=== PATIENT | female | born 1960 | race Caucasian/White ===

== ENCOUNTER 2016-09-23 09:48 | Inpatient (IN) ==
--- NOTE | 2016-09-22 21:43 | Discharge Summary ---
Outpatient Proc Discharge Plan - Plan Additional Instructions: NonWeightbear to affected extremity. ICE and elevate. Continue in immobilization Prescriptions: Clindamycin [Cleocin] 150 mg PO Q6HR #8 capsule OxyCODONE Immed Rel [Roxicodone 5 MG] 5 - 10 mg PO Q6HR PRN #40 tablet PRN Reason: Pain Home Medications: Calcitriol 0.5 mcg PO DAILY 05/05/16 [History] Duloxetine HCl [Cymbalta] 60 mg PO BID 05/05/16 [History] Alendronate Sodium [Fosamax] 70 mg PO TH 05/06/16 [History] Diclofenac Sodium [Voltaren] 75 mg PO BID 05/06/16 [History] Levothyroxine [Synthroid] 75 mcg PO QAM 05/06/16 [History] Pregabalin [Lyrica] 75 mg PO TID 05/06/16 [History] Simvastatin [Zocor] 40 mg PO HS 05/06/16 [History] Lisinopril [Zestril] 20 mg PO DAILY 05/31/16 [History] Omeprazole [PriLOSEC] 20 mg PO DAILY 05/31/16 [History] Sennosides/Docusate Sodium [Senna-S Tablet] 1 each PO BID 05/31/16 [History] Clindamycin [Cleocin] 150 mg PO Q6HR #8 capsule 09/22/16 [Rx] OxyCODONE Immed Rel [Roxicodone 5 MG] 5 - 10 mg PO Q6HR PRN #40 tablet 09/22/16 [Rx]
[2016-09-23] MEDS ORDERED: CeFAZolin Pre 3,000 MG/100 ML 3,000 MG/100 ML BAG IVPB ONE (10:17)
[2016-09-23] MEDS ORDERED: Lidocaine 1% 20 ML MDV ID ONE (10:17)
[2016-09-23] MEDS ORDERED: Ringers Solution, Lactated 1,000 ML IVC SCH ×2 (10:30→17:52)
--- NOTE | 2016-09-23 10:36 | Anesthesia Evaluation PreOp ---
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 (migraines, lumbar HNP with stenosis) Other Medical History: Thyroid, GERD (occassional), Other (Fibromyalgia, BMI 47) Anesthesia History: No Prior Anesthetic Complications Alcohol Use: none Drug use: none Medications and Allergies Calcitriol 0.5 mcg PO DAILY 05/05/16 [History] Duloxetine HCl [Cymbalta] 60 mg PO BID 05/05/16 [History] Alendronate Sodium [Fosamax] 70 mg PO TH 05/06/16 [History] Diclofenac Sodium [Voltaren] 75 mg PO BID 05/06/16 [History] Levothyroxine [Synthroid] 75 mcg PO QAM 05/06/16 [History] Pregabalin [Lyrica] 75 mg PO TID 05/06/16 [History] Simvastatin [Zocor] 40 mg PO HS 05/06/16 [History] Lisinopril [Zestril] 20 mg PO DAILY 05/31/16 [History] Omeprazole [PriLOSEC] 20 mg PO DAILY 05/31/16 [History] Sennosides/Docusate Sodium [Senna-S Tablet] 1 each PO BID 05/31/16 [History] Clindamycin [Cleocin] 150 mg PO Q6HR #8 capsule 09/22/16 [Rx] OxyCODONE Immed Rel [Roxicodone 5 MG] 5 - 10 mg PO Q6HR PRN #40 tablet 09/22/16 [Rx] Allergies menthol [From Ice Gel] Allergy (Verified 05/31/16 08:23) Rash azithromycin Adverse Reaction (Verified 05/31/16 08:23) Vomiting - Meds/Allergy Pre-op Review Medications Reviewed: Yes Allergies Reviewed: Yes Beta Blockers on Current Med List: No (not taking atenolol anymore) Anesthesia Results - Labs Laboratory Tests 09/17/16 09/17/16 12:35 12:35 WBC 8.9 Hgb 12.0 Hct 37.6 Plt Count 243 Sodium 140 Potassium 4.1 Chloride 105 Carbon Dioxide 26 BUN 26 H Creatinine 1.03 Est GFR ( Amer) > 60 Est GFR (Non-Af Amer) 55 L BUN/Creatinine Ratio 25 - Imaging EKG: report reviewed, image reviewed (SR; voltage criteria for LVH) Anesthesia Exam Last Vital Signs Temp 98.8 F 09/23/16 10:11 Pulse 82 09/23/16 10:11 Resp 18 09/23/16 10:11 BP 113/66 09/23/16 10:11 Pulse Ox 94 L 09/23/16 10:11 Weight: 136 kg NPO (# of Hours): >> 8 hrs - HEENT Pupil (Motor): Pupils equal, EOMI Mallampati: II Teeth: Missing, Poor dentition (very few teeth remaining) Oral Opening: Greater than 3 - KNITTING MACHINE OPERATOR LOC: Oriented - Cardiac Rhythm: Regular Murmur: None - Pulmonary Breath Sounds: bilateral Clear Respiratory Effort: Symmetrical Anesthesia Assess/Plan ASA Score: 3 Modified [place] Scale for Level of Consciousness: Cooperative, oriented, and tranquil Anesthetic Plan: General Monitoring Plan: Standard Monitors Recovery Plan: PACU
[2016-09-23] MEDS ORDERED: Ondansetron 4 MG/2 ML VIAL ONE (11:49)
[2016-09-23] MEDS ORDERED: Ketorolac 30 MG/ML VIAL ONE (11:49)
[2016-09-23] MEDS ORDERED: *HR* Midazolam HCl 2 MG/2 ML VIAL ONE (11:49)
[2016-09-23] MEDS ORDERED: *HR* FentaNYL (PF) 100 MCG/2 ML VIAL ONE ×2 (11:49→13:58)
[2016-09-23] MEDS ORDERED: *HR* Propofol 200 MG/20 ML VIAL IVP ONE (11:49)
[2016-09-23] MEDS ORDERED: Lidocaine -MPF 2% 2 ML VIAL ONE (11:50)
--- NOTE | 2016-09-23 12:00 | History & Physical Report ---
Date of Encounter: 09/23/16 Time of Encounter: 11:59 24 Hour HP Update - Instructions Instructions: If the History and Physical is less than 30 days old and was completed prior to A.M. admission and or procedure and has NOT been updated on calendar day of procedure please complete this update prior to performing procedure. - Update Patient reports changes in Medical Condition: No Changes in assessment/condition: No Changes in Medication: No Preop tests/diagnostics Reviewed: Yes Surgery Remains Indicated: Yes Consent for Planned Operative Procedure(s) Verified: Yes - Pre-Operative Checklist Preoperative Checklist Indicated: No Prophylactic Antibiotic Ordered: Yes Is VTE Prophylaxis Indicated?: Yes
--- NOTE | 2016-09-23 12:02 | Discharge Summary ---
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 Priority: Primary Status: Acute Qualifiers: Encounter type: subsequent encounter Fracture morphology: oblique Fracture alignment: displaced Qualified Code(s): S82.231K - Displaced oblique fracture of shaft of right tibia, subsequent encounter for closed fracture with nonunion (2) Fibromyalgia Priority: Secondary Status: Chronic (3) Hypertension Priority: Secondary Status: Chronic Qualifiers: Hypertension type: unspecified secondary hypertension Qualified Code(s): I15.9 - Secondary hypertension, unspecified; I15 - Secondary hypertension (4) Hypothyroidism Priority: Secondary Status: Chronic Qualifiers: Hypothyroidism type: unspecified Qualified Code(s): E03.9 - Hypothyroidism , unspecified (5) Morbid obesity Priority: Secondary Status: Chronic Qualifiers: Obesity type: unspecified obesity type Qualified Code(s): E66.01 - Morbid ( severe) obesity due to excess calories - Discharge Medications Home Medications: Duloxetine HCl [Cymbalta] 60 mg PO DAILY 05/05/16 [History] Alendronate Sodium [Fosamax] 70 mg PO WILLS 05/06/16 [History] Levothyroxine [Synthroid] 75 mcg PO QAM 05/06/16 [History] Pregabalin [Lyrica] 75 mg PO TID 05/06/16 [History] Simvastatin [Zocor] 40 mg PO HS 05/06/16 [History] Clindamycin [Cleocin] 150 mg PO Q6HR #8 capsule 09/22/16 [Rx] OxyCODONE Immed Rel [Roxicodone 5 MG] 5 - 10 mg PO Q6HR PRN #40 tablet 09/22/16 [Rx] Calcitriol [Rocaltrol] 0.25 mcg PO DAILY 09/23/16 [History] Calcium Carbonate [Calcium] 600 mg PO DAILY 09/23/16 [History] Lisinopril/Hydrochlorothiazide [Zestoretic 20-12.5 mg Tablet] 1 each PO DAILY [History] [place]-3/Dha/Epa/Fish Oil [[place] 3 500 Softgel] 1 each PO DAILY 09/23/16 [History ] Tramadol HCl [Ultram] 100 mg PO QID PRN 09/23/16 [History] Allergies/Adverse Reactions: Allergies menthol [From Ice Gel] Allergy (Verified 09/23/16 11:57) Rash Primary care physician: Belen Saravia CNP - Patient Status Disposition: Home, Self-Care Condition: Fair Functional capacity at discharge: uses cane/walker Overall status at discharge: patient is progressing back to baseline - Discharge Instructions Follow Up With: Belen Saravia CNP [Primary Care Provider] - Additional Instructions: NonWeightbear to affected extremity. ICE and elevate. Continue in immobilization - Hospital Course Hospital course: Ms. Cassidy is a 56 year old female The patient had an uneventful postoperative course. They received antibiotics and physical therapy and were discharged in stable condition. There will follow -up in the office in 2 weeks. - Time Spent with Patient Total time spent providing and/or coordinating discharge services:
[2016-09-23] MEDS ORDERED: Neostigmine Methylsulfate 3 MG/3 ML SYRINGE ONE (12:05)
[2016-09-23] MEDS ORDERED: Bupivacaine/EPI 1:200k 0.5%PF 10 ML VIAL ONE (12:27)
[2016-09-23] MEDS ORDERED: MethylPREDNISolone Acet(DEPOT) 80 MG/ML VIAL ONE (12:27)
[2016-09-23] MEDS ORDERED: Dexamethasone 4 MG/ML VIAL ONE (13:24)
[2016-09-23] MEDS ORDERED: *HR* Succinylcholine 200 MG/10 ML VIAL IVP ONE (13:29)
[2016-09-23] MEDS ORDERED: *HR* Promethazine 25 MG/ML VIAL IVP PRN (13:31)
[2016-09-23] MEDS ORDERED: Albuterol 2.5 MG/3 ML NEBULIZER IH PRN (13:31)
--- NOTE | 2016-09-23 14:22 | Orthopedic Operative Note ---
Date of procedure: 09/23/16 Pre-op diagnosis: Nonunion right tibial shaft fracture Post-op diagnosis: same Procedure: Procedure: Right tibia removal of hardware, takedown of nonunion open reduction internal fixation. Estimated blood loss 1000 mL Hardware: Synthes 8 hole medial periarticular proximal 4.5 locking plate 3 4.5 cortical screws 8 5.0 locking screws, one indwelling bone stimulator. Dictation surgery: Patient brought to the operating placed on the operative table after general anesthesia was administered the right lower extremity is prepped and draped in sterile surgical fashion patient received IV antibiotics prior to skin incision. A small incision was made over the distal screw anteromedial right ankle area. Incision made through the skin and subcutaneous tissue hemostasis was obtained Bovie cautery. Screws identified and removed without incident. Wound was irrigated skin was closed with skin alize. Attention then turned to removal of the prasanth proximally and the proximal locking screw. A longitudinal incision was made through the old incision extending distally down the proximal tibia. Incision made through skin and subcutaneous tissue hemostasis was obtained Bovie cautery. Using careful blunt dissection the proximal locking screw was identified medially and removed without incident. A medial parapatellar tendon approach was performed incision made through the parapatellar tendon area. Using careful blunt dissection the prasanth was identified extraction device was attached and the prasanth was removed without incident. Utilizing fluoroscopic assistance the nonunion site was identified. Incision was taken down distally past the this area. He anteromedial tibia was exposed. The nonunion site was exposed cleared of debris. The nonunion was reduced and held in place with a bone-holding forceps. Position of the reduction was found to be acceptable. An 8 hole para-articular proximal tibial plate was approximated to the anteromedial aspect. It was secured on each side of the fracture in compression with 2 4.5 compression screws. Fixation was augmented distally with one 4.5 compression screw and 2 5.0 locking screws. Fixation proximally was augmented with 65.0 locking screws. The position of the hardware as well as fracture reduction found to be acceptable with fluoroscopic assistance in the AP and lateral planes. Wound was irrigated with pulse irrigation. This is was after the wound sat for 2 minutes with a Betadine saline solution. 5 mL of DBX bone stimulating protein was packed around the fracture site laterally. An indwelling bone stimulator was then placed in this area as well. The deep subcutaneous tissues closed with #2 PDS suture subcutaneous tissue irrigated and closed deep #1 PDS suture superficially with 0 Monocryl suture and skin was closed with skin alize. She was placed in a sterile dressing U-splint extubated transferred to recovery room stable condition. Anesthesia: CHIKIS Surgeon: Haile Hackett Carton Folder: Wendy Gray Condition: stable Disposition: PACU
[2016-09-23] MEDS: *HR* HYDROmorphone (PF) 1 MG/ML SYRINGE IVP PRN ×6 (15:20→23:53)
[2016-09-23] MEDS ORDERED: Acetaminophen IV 1,000 MG/100 ML INFUS..BTL IVPB ONE (15:50)
--- NOTE | 2016-09-23 16:31 | Anesthesia Evaluation Post Op ---
Date of Encounter: 09/23/16 Time of Encounter: 16:29 - Vital Signs Vital Signs: Vital Signs/O2 Sat, Most Current Temp Pulse Resp BP Pulse Ox 97.1 F L 88 16 124/96 98 09/23/16 15:52 09/23/16 16:22 09/23/16 16:22 09/23/16 16:22 09/23/16 16:22 - Lungs Lungs: Clear Ascult./Percussion - Airway Airway: Non-obstructed - Cardiovascular Regular Rate - Mental Status Mental Status: Asleep with brisk response to light stimulation - Pain Pain Scale: 8 (has rec'd pain med) Pain Scale used: Numeric (1 - 10) - Nausea Vomiting Nausea Vomiting: Not Present - Hydration Hydration: NPO, Has not voided - Discharge PostOp Status: Transfer Patient to floor
[2016-09-23] MEDS ORDERED: MOM Conc 10 ML UD.LIQ PO PRN (17:52)
[2016-09-23] MEDS ORDERED: *HR* OxyCODONE Immed Rel 5 MG TABLET PO PRN (17:52)
[2016-09-23] MEDS ORDERED: Acetaminophen 325 MG TABLET PO PRN (17:52)
[2016-09-23] MEDS ORDERED: Naloxone 0.4 MG/ML INJ IVP PRN (17:52)
[2016-09-23] MEDS ORDERED: Temazepam 15 MG CAPSULE PO PRN (17:52)
[2016-09-23] MEDS ORDERED: Ondansetron 4 MG/2 ML VIAL IVP PRN (17:52)
[2016-09-23] MEDS ORDERED: Sennosides 8.6 MG TABLET PO PRN (17:52)
[2016-09-23] MEDS ORDERED: *HR* Enoxaparin 30 MG/0.3 ML SYRINGE SQ SCH (18:00)
[2016-09-23] MEDS: *HR* Enoxaparin 30 MG/0.3 ML SYRINGE SQ SCH (18:21)
[2016-09-23 19:04] LABS: Hemoglobin 11.9 g/dL (11.5-15.4)
[2016-09-23] MEDS: ceFAZolin 3,000 MG in D5% in Water 100 ML IVPB SCH (21:04)
[2016-09-23] MEDS: *HR* OxyCODONE Immed Rel 5 MG TABLET PO PRN (21:06)
[2016-09-24] MEDS: ceFAZolin 3,000 MG in D5% in Water 100 ML IVPB SCH (04:28)
[2016-09-24] MEDS: *HR* OxyCODONE Immed Rel 5 MG TABLET PO PRN ×4 (04:28→19:48)
--- NOTE | 2016-09-24 06:42 | Orthopedics Progress Note ---
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 Current Visit: Yes Status: Acute Qualifiers: Encounter type: subsequent encounter Fracture morphology: oblique Fracture alignment: displaced Qualified Code(s): S82.231K - Displaced oblique fracture of shaft of right tibia, subsequent encounter for closed fracture with nonunion (2) Fibromyalgia Current Visit: No Status: Chronic (3) Hypertension Current Visit: No Status: Chronic Qualifiers: Hypertension type: unspecified secondary hypertension Qualified Code(s): I15.9 - Secondary hypertension, unspecified; I15 - Secondary hypertension (4) Hypothyroidism Current Visit: No Status: Chronic Qualifiers: Hypothyroidism type: unspecified Qualified Code(s): E03.9 - Hypothyroidism , unspecified (5) Morbid obesity Current Visit: No Status: Chronic Qualifiers: Obesity type: unspecified obesity type Qualified Code(s): E66.01 - Morbid ( severe) obesity due to excess calories Subjective Interval history: Patient was seen this morning doing well without complaints. Afebrile vital signs stable. Operative extremity: Neurovascularly intact Dressing clean dry and intact Calves nontender Assessment and plan: Continue with postoperative care hematocrit 37 discharge today Objective Vital signs: Vital Signs Temp Pulse Resp BP Pulse Ox 09/24/16 06:30 97.4 F L 107 18 125/76 95 09/24/16 04:00 98.0 F 101 18 120/77 97 09/24/16 00:34 97.8 F 104 18 115/75 97 09/23/16 23:34 97.9 F 108 16 114/75 97 09/23/16 21:00 98 F 94 16 116/74 95 09/23/16 19:39 97.6 F 91 16 91/65 94 L 09/23/16 18:44 97.5 F L 125 16 103/64 94 L 09/23/16 18:37 97.5 F L 114 14 70/49 94 L 09/23/16 18:15 97.5 F L 114 16 104/80 94 L 09/23/16 17:45 97.9 F 110 16 102/78 95 09/23/16 17:30 97.6 F 96 16 117/81 96 09/23/16 16:35 97.1 F L 85 14 130/93 97 09/23/16 16:22 88 16 124/96 98 09/23/16 16:12 87 14 125/88 99 09/23/16 16:02 86 16 137/87 96 09/23/16 15:52 97.1 F L 79 18 134/85 99 09/23/16 15:42 80 20 126/87 96 09/23/16 15:32 80 22 127/70 97 09/23/16 15:22 80 20 115/67 100 09/23/16 15:12 79 16 109/71 97 09/23/16 15:02 97.1 F L 87 14 108/67 94 L 09/23/16 10:11 98.8 F 82 18 113/66 94 L Intake and Output 09/23/16 09/23/16 09/24/16 15:59 23:59 07:59 Intake Total 100 / 100 100 / 100 Output Total 1000 / 1000 300 / 300 Balance -900 / -900 -200 / -200 Intake: IV Fluids 100 / 100 100 / 100 Ancef 3,000 MG In 100 / 100 Dextrose 5% 100 ML @ 200 mls/hr IVPB Q8H [facility]MAN Rx#: [id number] Ancef Premix 3,000 MG/100 100 / 100 ML 3,000 mg In 100 ml @ 200 mls/hr IVPB PREOP ONE Rx#:[id number] Output: Urine 300 / 300 Estimated Blood Loss 1000 / 1000 Other: Weight 136.078 kg - Labs CBC & BMP: 09/23/16 18:56 - VTE Documentation of Mechanical Device: Venous foot pump, device Consult Discharge Plan - Plan Additional Instructions: NonWeightbear to affected extremity. ICE and elevate. Continue in immobilization Referrals: Belen Saravia, COATING ENGINEER [Primary Care Provider] -
[2016-09-24] MEDS: *HR* HYDROmorphone (PF) 1 MG/ML SYRINGE IVP PRN ×4 (06:48→18:09)
[2016-09-24] MEDS: *HR* Enoxaparin 30 MG/0.3 ML SYRINGE SQ SCH ×2 (06:48→18:09)
[2016-09-24 07:12] LABS: Hematocrit 33.5 % (35.3-44.9); Hemoglobin 10.6 g/dL (11.5-15.4)
[2016-09-24 07:17] LABS: Calcium 8.6 mg/dL (8.6-10.8); Potassium 4.2 mEq/L (3.5-4.5)
[2016-09-24] MEDS: Lisinopril-HCTZ 20-12.5mg TABLET PO SCH (09:04)
[2016-09-24] MEDS: traMADol 50 MG TABLET PO PRN (23:22)
[2016-09-25] MEDS: *HR* OxyCODONE Immed Rel 5 MG TABLET PO PRN ×3 (00:20→11:46)
[2016-09-25] MEDS: *HR* HYDROmorphone (PF) 1 MG/ML SYRINGE IVP PRN (02:32)
[2016-09-25 05:55] VITALS: BP 107/73
[2016-09-25] MEDS: *HR* Enoxaparin 30 MG/0.3 ML SYRINGE SQ SCH (05:57)
[2016-09-25 06:38] LABS: Hemoglobin 9.6 g/dL (11.5-15.4)
[2016-09-25 06:49] LABS: Potassium 4.3 mEq/L (3.5-4.5)
--- NOTE | 2016-09-25 08:02 | Orthopedics Progress Note ---
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 Current Visit: Yes Status: Acute Qualifiers: Encounter type: subsequent encounter Fracture morphology: oblique Fracture alignment: displaced Qualified Code(s): S82.231K - Displaced oblique fracture of shaft of right tibia, subsequent encounter for closed fracture with nonunion (2) Fibromyalgia Current Visit: No Status: Chronic (3) Hypertension Current Visit: No Status: Chronic Qualifiers: Hypertension type: unspecified secondary hypertension Qualified Code(s): I15.9 - Secondary hypertension, unspecified; I15 - Secondary hypertension (4) Hypothyroidism Current Visit: No Status: Chronic Qualifiers: Hypothyroidism type: unspecified Qualified Code(s): E03.9 - Hypothyroidism , unspecified (5) Morbid obesity Current Visit: No Status: Chronic Qualifiers: Obesity type: unspecified obesity type Qualified Code(s): E66.01 - Morbid ( severe) obesity due to excess calories Subjective Interval history: Patient was seen this morning doing well without complaints. Afebrile vital signs stable. Operative extremity: Neurovascularly intact Dressing clean dry and intact Calves nontender Assessment and plan: Continue with postoperative care discharge today Objective Vital signs: Vital Signs Temp Pulse Resp BP Pulse Ox 09/25/16 05:54 98.7 F 114 15 107/73 93 L 09/25/16 01:45 98.9 F 114 16 100/58 92 L 09/24/16 21:05 98.5 F 107 14 94/64 96 09/24/16 15:30 98.2 F 105 18 93/55 92 L 09/24/16 12:00 115 18 133/76 93 L 09/24/16 11:05 98.2 F 115 18 133/76 93 L Intake and Output 09/24/16 09/25/16 09/25/16 23:59 07:59 15:59 Output Total 300 / 300 Balance -300 / -300 Output: Urine 300 / 300 Other: # Voids 1 1 - Labs CBC & BMP: 09/25/16 06:26 09/25/16 06:26 Labs: Abnormal lab results Hgb 9.6 g/dL (11.5-15.4) L 09/25/16 06:26 Hct 30.0 % (35.3-44.9) L 09/25/16 06:26 BUN 32 mg/dL (7-20) H D 09/25/16 06:26 Creatinine 1.27 mg/dL (0.57-1.11) H 09/25/16 06:26 Est GFR ( Amer) 52 (> 60) L 09/25/16 06:26 Est GFR (Non-Af Amer) 43 (> 60) L 09/25/16 06:26 Glucose 137 mg/dL (70-99) H 09/25/16 06:26 - VTE Documentation of Mechanical Device: Venous foot pump, device Consult Discharge Plan - Plan Additional Instructions: NonWeightbear to affected extremity. ICE and elevate. Continue in immobilization Referrals: Haile Hackett MD [Partnered Physician] - 10/22/16 7:20 am Wendy Gray, PAC [Physician Shuttle Threader] - 10/03/16 8:45 am Belen Saravia, RESEARCH PROFESSIONAL [Primary Care Provider] -
[2016-09-25] MEDS: Lisinopril-HCTZ 20-12.5mg TABLET PO SCH (08:31)
[2016-09-25] MEDS: traMADol 50 MG TABLET PO PRN (08:32)
[2016-09-25] MEDS ORDERED: 0.9 % Sodium Chloride 500 ML IVC ONE (11:14)
[2016-09-29] MEDS ORDERED: (Alendronate Sodium [Fosamax] 70 MG) PO SCH (12:03)
== END 2016-09-25 13:38 | disposition home or self-care (01) | DRG 493 ==
LOC: SAMDAY 09:48 → 3NENU 17:28
PROVIDERS: ADMIT Orthopaedic Surgery; ATTEND Orthopaedic Surgery

== ENCOUNTER 2017-05-28 06:05 | Inpatient (IN) ==
--- NOTE | 2017-05-27 17:15 | Discharge Summary ---
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 Priority: Primary Status: Chronic (2) Osteomalacia Priority: Secondary Status: Chronic (3) GERD (gastroesophageal reflux disease) Priority: Secondary Status: Chronic Qualifiers: Esophagitis presence: esophagitis presence not specified Qualified Code(s) : K21.9 - Gastro-esophageal reflux disease without esophagitis (4) Fibromyalgia Priority: Secondary Status: Chronic (5) Hypothyroidism Priority: Secondary Status: Chronic Qualifiers: Hypothyroidism type: unspecified (6) Hypertension Priority: Secondary Status: Chronic Qualifiers: Hypertension type: unspecified Qualified Code(s): I10 - Essential (primary ) hypertension (7) Morbid obesity Priority: Secondary Status: Chronic (8) Renal failure, chronic Priority: Secondary Status: Chronic Qualifiers: Chronic kidney disease stage: stage 3 (moderate) Qualified Code(s): N18.3 - Chronic kidney disease, stage 3 (moderate) (9) Chronic pain Priority: Secondary Status: Chronic Comments: Patient takes Tramadol on a regular basis from pain provider. She is to hold Tramadol and take Oxycodone for her post-operative pain in the immediate post- operative period. Qualifiers: Chronic pain type: other chronic pain Qualified Code(s): G89.29 - Other chronic pain - Discharge Medications Home Medications: Duloxetine HCl [Cymbalta] 60 mg PO DAILY 05/05/16 [History] Alendronate Sodium [Fosamax] 70 mg PO WILLS 05/06/16 [History] Levothyroxine [Synthroid] 75 mcg PO QAM 05/06/16 [History] Pregabalin [Lyrica] 75 mg PO TID 05/06/16 [History] Simvastatin [Zocor] 40 mg PO HS 05/06/16 [History] Calcitriol [Rocaltrol] 0.25 mcg PO DAILY 09/23/16 [History] Calcium Carbonate [Calcium] 600 mg PO DAILY 09/23/16 [History] [place]-3/Dha/Epa/Fish Oil [[place] 3 500 Softgel] 1 each PO DAILY 09/23/16 [History ] Aspirin Enteric Coated [Aspirin EC] 325 mg PO DAILY 21 Days #21 tablet.dr [Rx] OxyCODONE Immed Rel [Roxicodone 5 MG] 5 mg PO Q6HR PRN #28 tablet 05/27/17 [Rx] Cholecalciferol (Vitamin D3) [Vitamin D3] 2,000 unit PO BID 05/28/17 [History] Ferrous Sulfate [Iron] 325 mg PO DAILY 05/28/17 [History] Lisinopril/Hydrochlorothiazide [Zestoretic 10-12.5 mg Tablet] 1 tab PO DAILY [History] Omeprazole [PriLOSEC] 20 mg PO DAILY 05/28/17 [History] Allergies/Adverse Reactions: 3 Allergy/AdvReac Type Severity Reaction Status Date / Time menthol [From Ice Gel] Allergy Rash Verified 05/28/17 06:49 Primary care physician: Belen Saravia CNP - Patient Status Disposition: Transfer Inpatient Rehab Fac Condition: Good - Discharge Instructions Follow Up With: Trey Cunningham MD [Partnered Physician] - 06/17/17 10:00 am Belen Saravia CNP [Primary Care Provider] - 06/10/17 10:15 am - Hospital Course Hospital course: Ms. Cassidy is a 56 year old female - Time Spent with Patient Total time spent providing and/or coordinating discharge services: - VTE Documentation of Mechanical Device: Venous foot pump, device <Haile Hackett - Last Filed: 05/30/17 07:47> Date of Encounter: 05/30/17 Time of Encounter: 07:46 - Discharge Diagnosis (1) Fibromyalgia Priority: Secondary Status: Chronic (2) Hypothyroidism Priority: Secondary Status: Chronic Qualifiers: Hypothyroidism type: unspecified Qualified Code(s): E03.9 - Hypothyroidism , unspecified (3) Hypertension Priority: Secondary Status: Chronic Qualifiers: Hypertension type: unspecified Qualified Code(s): I10 - Essential (primary ) hypertension (4) Morbid obesity Priority: Secondary Status: Chronic Comments: BMI 48.9 (5) 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 Priority: Primary Status: Chronic Qualifiers: Fracture morphology: oblique Fracture alignment: displaced (6) Renal failure, chronic Priority: Secondary Status: Inactive Qualifiers: Chronic kidney disease stage: stage 3 (moderate) Qualified Code(s): N18.3 - Chronic kidney disease, stage 3 (moderate) (7) Osteomalacia Priority: Secondary Status: Chronic (8) GERD (gastroesophageal reflux disease) Priority: Secondary Status: Chronic Qualifiers: Esophagitis presence: esophagitis presence not specified Qualified Code(s) : K21.9 - Gastro-esophageal reflux disease without esophagitis (9) Chronic pain Priority: Secondary Status: Chronic Qualifiers: Chronic pain type: other chronic pain Qualified Code(s): G89.29 - Other chronic pain Primary care physician: Belen Saravia CNP - Patient Status Functional capacity at discharge: uses cane/walker Overall status at discharge: patient is progressing back to baseline - Hospital Course Hospital course: Ms. Cassidy is a 56 year old female Has post takedown of nonunion removal of hardware and revision of nonunion fixation right tibia. The patient had an uneventful postoperative course. They received antibiotics and physical therapy and were discharged in stable condition. There will follow -up in the office in 2 weeks. Patient requires discharged to a longterm due to inability to take care of herself. Patient will be discharged tomorrow - Time Spent with Patient Total time spent providing and/or coordinating discharge services:
[2017-05-28] MEDS ORDERED: Lidocaine -MPF 1% 2 ML VIAL ID ONE (06:32)
[2017-05-28] MEDS ORDERED: CeFAZolin Pre 3,000 MG/100 ML 3,000 MG/100 ML BAG IVPB ONE (06:32)
[2017-05-28] MEDS: 0.9 % Sodium Chloride 500 ML IVC SCH ×2 (06:37→10:09)
[2017-05-28] MEDS ORDERED: *HR* Succinylcholine 200 MG/10 ML VIAL IVP ONE (06:52)
[2017-05-28] MEDS ORDERED: *HR* FentaNYL (PF) 100 MCG/2 ML VIAL ONE (06:52)
[2017-05-28] MEDS ORDERED: Dexamethasone 4 MG/ML VIAL ONE (06:52)
[2017-05-28] MEDS ORDERED: *HR* Rocuronium Bromide 50 MG/5 ML VIAL ONE (06:52)
[2017-05-28] MEDS ORDERED: Lidocaine -MPF 4% 5 ML AMPUL ONE (06:52)
[2017-05-28] MEDS ORDERED: *HR* Midazolam HCl 2 MG/2 ML VIAL ONE (06:52)
[2017-05-28] MEDS ORDERED: Lidocaine -MPF 2% 2 ML VIAL ONE (06:52)
[2017-05-28] MEDS ORDERED: *HR* Propofol 200 MG/20 ML VIAL IVP ONE (06:52)
[2017-05-28] MEDS ORDERED: Ondansetron 4 MG/2 ML VIAL ONE (06:52)
--- NOTE | 2017-05-28 07:03 | History & Physical Report ---
Date of Encounter: 05/28/17 Time of Encounter: 07:02 24 Hour HP Update - Instructions Instructions: If the History and Physical is less than 30 days old and was completed prior to A.M. admission and or procedure and has NOT been updated on calendar day of procedure please complete this update prior to performing procedure. - Update Patient reports changes in Medical Condition: No Changes in examination, assessment, or condition: No Changes in Medication: No Preop tests/diagnostics Reviewed: Yes Surgery Remains Indicated: Yes Consent for Planned Operative Procedure(s) Verified: Yes - Pre-Operative Checklist Preoperative Checklist Indicated: No Prophylactic Antibiotic Ordered: Yes Is VTE Prophylaxis Indicated?: Yes
--- NOTE | 2017-05-28 07:35 | Anesthesia Evaluation PreOp ---
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: Denies Any Significant HX Other Medical History: Renal (stage 3 CKD), Thyroid, GERD, Other (obesity BMI= 48.9, fibromyalgia , migraine ESPINOZA's) Anesthesia History: No Prior Anesthetic Complications, Past Anesthesia Alcohol Use: none Drug use: none Medications and Allergies Duloxetine HCl [Cymbalta] 60 mg PO DAILY 05/05/16 [History] Alendronate Sodium [Fosamax] 70 mg PO WILLS 05/06/16 [History] Levothyroxine [Synthroid] 75 mcg PO QAM 05/06/16 [History] Pregabalin [Lyrica] 75 mg PO TID 05/06/16 [History] Simvastatin [Zocor] 40 mg PO HS 05/06/16 [History] Calcitriol [Rocaltrol] 0.25 mcg PO DAILY 09/23/16 [History] Calcium Carbonate [Calcium] 600 mg PO DAILY 09/23/16 [History] [place]-3/Dha/Epa/Fish Oil [[place] 3 500 Softgel] 1 each PO DAILY 09/23/16 [History ] Tramadol HCl [Ultram] 100 mg PO QID PRN 09/23/16 [History] Aspirin Enteric Coated [Aspirin EC] 325 mg PO DAILY 21 Days #21 tablet. [Rx] OxyCODONE Immed Rel [Roxicodone 5 MG] 5 mg PO Q6HR PRN #28 tablet 05/27/17 [Rx] Cholecalciferol (Vitamin D3) [Vitamin D] 1,000 unit PO DAILY 05/28/17 [History] Ferrous Sulfate [Iron] 325 mg PO DAILY 05/28/17 [History] Lisinopril/Hydrochlorothiazide [Zestoretic 10-12.5 mg Tablet] 1 tab PO DAILY [History] Omeprazole [PriLOSEC] 20 mg PO DAILY 05/28/17 [History] 3 Allergy/AdvReac Type Severity Reaction Status Date / Time menthol [From Ice Gel] Allergy Rash Verified 05/28/17 06:49 - Meds/Allergy Pre-op Review Medications Reviewed: Yes Allergies Reviewed: Yes Beta Blockers on Current Med List: No Anesthesia Results - Labs Laboratory Tests 05/22/17 05/22/17 12:54 12:54 WBC 10.7 Hgb 13.6 Hct 41.5 Plt Count 253 Sodium 140 Potassium 4.4 BUN 28 H Creatinine 1.23 H - Imaging EKG: report reviewed (05/19/2017 SINUS RHYTHM VOLTAGE CRITERIA FOR LVH 2015 SR, voltage criteria for LVH) Anesthesia Exam O2 Sat Height 1.7 m Height 1.7 m Height 1.7 m Weight 141.521 kg Weight 141.521 kg Weight 141.521 kg O2 Sat by Pulse Oximetry 95 O2 Sat by Pulse Oximetry 95 Vital Signs Temp Pulse Resp BP Pulse Ox 98.9 F 78 18 133/71 95 05/28/17 06:24 05/28/17 06:24 05/28/17 06:24 05/28/17 06:24 05/28/17 06:24 Height: 5'7'' Weight: 312 lbs NPO (# of Hours): 8 Pain Scale: 0 (at rest) Pain Scale Used: Numeric (1 - 10) - HEENT Pupil (Motor): EOMI Mallampati: II Teeth: Normal, Missing Denture Type: Upper: Complete, Lower: Partial Oral Opening: Greater than 3 - [employer]ENT LOC: Oriented [employer]ENT Motor: Normal RUE, Normal LUE, Normal LLE, Normal Face, Deficit RLE [employer]ENT Sensory: Normal: RUE, LUE, LLE, Face, Deficit: RLE - Cardiac Rhythm: Regular Murmur: Systolic - Pulmonary Breath Sounds: bilateral Clear Respiratory Effort: Symmetrical Anesthesia Assess/Plan ASA Score: 3 Modified [place] Scale for Level of Consciousness: Cooperative, oriented, and tranquil Anesthetic Plan: General Monitoring Plan: Standard Monitors Recovery Plan: PACU
[2017-05-28] MEDS ORDERED: Ethanol\\Acetic Acid\\Na Ace\\Ben 1,000 ML IRRIG.SOLN IR ONE (07:42)
[2017-05-28] MEDS ORDERED: Ketamine *HR* 500 MG/10 ML MDV ONE (08:26)
[2017-05-28] MEDS ORDERED: Acetaminophen IV 1,000 MG/100 ML INFUS..BTL ONE (08:27)
[2017-05-28] MEDS ORDERED: Naloxone 0.4 MG/ML INJ IVP PRN ×2 (08:36→11:11)
[2017-05-28] MEDS ORDERED: Ondansetron 4 MG/2 ML VIAL IVP PRN ×2 (08:36→11:11)
[2017-05-28] MEDS ORDERED: *HR* Meperidine 25 MG/ML SYRINGE IVP PRN (08:36)
[2017-05-28] MEDS ORDERED: *HR* Labetalol 20 MG/4 ML SYRINGE IVP PRN (08:36)
--- NOTE | 2017-05-28 09:18 | Orthopedic Operative Note ---
Date of procedure: 05/28/17 Pre-op diagnosis: Right tibia shaft nonunion hardware failure Post-op diagnosis: same (Osteomalacia) Procedure: Procedure: Right tibia removal of hardware takedown of nonunion open reduction internal fixation revision Estimated blood loss: 500 mL Hardware Synthes metal 4.5 LCDCP broad locking plates 2 1 8 hole and one 9 hole, 9 4.5 compression screws, 8 5.0 locking screws Findings: Nonunion with mobile fracture site. Fracture of previous plate. Dictation of surgery. Patient brought to the operating placed on the operating room table. After general anesthesia was administered the right lower extremity was prepped and draped in sterile surgical fashion. Patient received IV antibiotics prior to skin incision. A longitudinal incision was made through the old incision through skin and subcutaneous tissue. Hemostasis was obtained with the Bovie cautery. Using careful blunt dissection fascia was identified and incised. Subperiosteal dissection was taken both medial and lateral along the anterior aspect of the tibia. Nonunion site was exposed. Cultures were obtained. Fractured plate was removed as well as multiple screws patient one broken screw portion of this remained intra-medullary to avoid damage to the bone to try and get it out. Osteotomy was performed with oscillating saw to freshen up the end and help with the reduction. A 4.5 9 hole plate was approximately anterolateral aspect of the tibia in the leg into a more neutral from a varus position. It was secured with 5 5.0 locking screws and 4, 4.5 compression screws. Position of the hardware as well as fracture reduction was found to be acceptable with fluoroscopic assistance. An 8 hole plate was approximated to the anteromedial aspect it was fixed with a combination of locking and compression screws. Wound was irrigated with a antibacterial solution, then with normal saline solution. The fracture site was packed with bone from the osteotomy, as well as DBX bone stability protein. The deep tissue was closed with #2 PDS suture subcutaneous with #1 PDS suture superficially with Monocryl suture skin was closed with skin alize. The PA closed the superficial tissues. Patient was placed in a sterile dressing a postoperative splint extubated and transferred to recovery stable condition. Anesthesia: CHIKIS Surgeon: Haile Hackett Supervisor [employer]: Milagro Goldsmith Condition: stable Disposition: PACU
[2017-05-28] MEDS ORDERED: *HR* HYDROmorphone 2 MG/ML SYRINGE ONE (09:30)
[2017-05-28] MEDS: *HR* HYDROmorphone (PF) 1 MG/ML SYRINGE IVP PRN ×9 (09:58→23:16)
[2017-05-28] MEDS ORDERED: Ringers Solution, Lactated 1,000 ML ONE ×2 (10:03→15:32)
[2017-05-28] MEDS ORDERED: 0.9 % Sodium Chloride 500 ML ONE (10:06)
[2017-05-28 10:49] LABS: Hematocrit 37.4 % (35.3-44.9); Hemoglobin 12.1 g/dL (11.5-15.4)
--- NOTE | 2017-05-28 11:04 | Anesthesia Evaluation Post Op ---
Date of Encounter: 05/28/17 Time of Encounter: 11:03 - Vital Signs Vital Signs: Vital Signs/O2 Sat, Most Current Temp Pulse Resp BP Pulse Ox 97.5 F L 86 12 139/73 95 05/28/17 10:56 05/28/17 10:56 05/28/17 10:56 05/28/17 10:56 05/28/17 10:56 - Lungs Lungs: Clear Ascult./Percussion - Airway Airway: Non-obstructed - Cardiovascular Regular Rate - Mental Status Mental Status: Alert & Oriented, Answers Appropriately - Pain Pain Scale: 5 Pain Scale used: Numeric (1 - 10) - Nausea Vomiting Nausea Vomiting: Not Present - Hydration Hydration: Ice chips, Has not voided - Discharge PostOp Status: Transfer Patient to floor
[2017-05-28] MEDS ORDERED: *HR* OxyCODONE Immed Rel 5 MG TABLET PO PRN (11:11)
[2017-05-28] MEDS ORDERED: *HR* HYDROmorphone (PF) 1 MG/ML SYRINGE IVP PRN (11:11)
[2017-05-28] MEDS ORDERED: Sennosides 8.6 MG TABLET PO PRN (11:11)
[2017-05-28] MEDS ORDERED: Cholecalciferol (D-3) 1,000 UNIT TABLET PO SCH (11:11)
[2017-05-28] MEDS: Pregabalin 75 MG CAPSULE PO SCH ×3 (11:33→20:08)
[2017-05-28] MEDS: ceFAZolin 3,000 MG in D5% in Water 100 ML IVPB SCH ×2 (12:30→20:08)
[2017-05-28] MEDS: *HR* OxyCODONE Immed Rel 5 MG TABLET PO PRN ×2 (14:50→20:08)
[2017-05-28] MEDS: Ringers Solution, Lactated 1,000 ML IVC SCH (16:54)
[2017-05-28] MEDS: FISH OIL PO SCH (17:54)
[2017-05-28] MEDS: EPA PO SCH (17:54)
[2017-05-28] MEDS: OMEGA PO SCH (17:54)
[2017-05-28] MEDS: DHA PO SCH (17:54)
[2017-05-29] MEDS: *HR* OxyCODONE Immed Rel 5 MG TABLET PO PRN ×4 (01:06→16:37)
[2017-05-29] MEDS: *HR* HYDROmorphone (PF) 1 MG/ML SYRINGE IVP PRN ×5 (03:19→23:50)
[2017-05-29 05:05] LABS: Hematocrit 32.9 % (35.3-44.9); Hemoglobin 10.8 g/dL (11.5-15.4)
[2017-05-29 05:16] LABS: Calcium 8.3 mg/dL (8.6-10.8); Potassium 3.9 mEq/L (3.5-4.5)
[2017-05-29] MEDS ORDERED: Aspirin Enteric Coated 325 MG Tablet PO SCH (07:03)
--- NOTE | 2017-05-29 08:13 | Orthopedics Progress Note ---
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 Current Visit: No Status: Chronic Qualifiers: Fracture morphology: oblique Fracture alignment: displaced Qualified Code (s): S82.231K - Displaced oblique fracture of shaft of right tibia, subsequent encounter for closed fracture with nonunion (6) Renal failure, chronic Current Visit: No Status: Chronic Qualifiers: Chronic kidney disease stage: stage 3 (moderate) Qualified Code(s): N18.3 - Chronic kidney disease, stage 3 (moderate) (7) Osteomalacia Current Visit: No Status: Chronic (8) GERD (gastroesophageal reflux disease) Current Visit: No Status: Chronic Qualifiers: Esophagitis presence: esophagitis presence not specified Qualified Code(s) : K21.9 - Gastro-esophageal reflux disease without esophagitis (9) Chronic pain Current Visit: No Status: Chronic Qualifiers: Chronic pain type: other chronic pain Qualified Code(s): G89.29 - Other chronic pain Subjective Interval history: Patient was seen this morning doing well without complaints. Afebrile vital signs stable. Operative extremity: Neurovascularly intact Splint intact and dry Assessment and plan: Continue with postoperative care hematocrit 32 Objective Vital signs: Vital Signs Temp Pulse Resp BP Pulse Ox 05/29/17 06:45 98.2 F 87 16 130/82 96 05/29/17 03:26 98.3 F 92 18 105/71 94 05/29/17 00:01 98.4 F 90 18 111/68 94 05/28/17 19:59 98.8 F 92 16 115/77 94 05/28/17 14:41 98.6 F 86 16 126/77 93 05/28/17 14:15 97.9 F 102 15 121/76 91 05/28/17 13:46 98.3 F 99 18 156/85 93 05/28/17 12:32 98.1 F 97 16 128/77 90 05/28/17 11:48 98.6 F 89 15 149/79 93 05/28/17 11:27 93 05/28/17 11:15 98.1 F 92 18 117/75 93 05/28/17 10:56 97.5 F L 86 12 139/73 95 05/28/17 10:46 97.4 F L 85 12 145/90 95 05/28/17 10:36 82 12 148/83 95 05/28/17 10:26 80 12 147/84 97 05/28/17 10:16 97.6 F 75 14 143/87 95 05/28/17 10:06 78 18 136/85 96 05/28/17 09:56 85 18 133/74 97 05/28/17 09:46 97.1 F L 83 16 148/89 99 Intake and Output 05/28/17 05/29/17 05/29/17 23:59 07:59 15:59 Intake Total 240 / 240 Output Total 300 / 300 500 / 500 Balance 240 / 240 -300 / -300 -500 / -500 Intake: Oral 240 / 240 Output: Urine 300 / 300 500 / 500 Other: Meal Dinner Percent of Meal Consumed 100% Weight 145.7 kg Patient Weight 05/29/17 23:59 Weight 145.7 kg - Labs CBC & BMP: 05/29/17 04:12 05/29/17 04:12 Labs: Abnormal lab results Hgb 10.8 g/dL (11.5-15.4) L 05/29/17 04:12 Hct 32.9 % (35.3-44.9) L 05/29/17 04:12 Creatinine 1.19 mg/dL (0.57-1.11) H 05/29/17 04:12 Est GFR ( Amer) 56 (> 60) L 05/29/17 04:12 Est GFR (Non-Af Amer) 47 (> 60) L 05/29/17 04:12 Glucose 146 mg/dL (70-99) H 05/29/17 04:12 Calcium 8.3 mg/dL (8.6-10.8) L 05/29/17 04:12 - VTE Documentation of Mechanical Device: Venous foot pump, device Consult Discharge Plan - Plan Referrals: Belen Saravia, FOOD BAGGING MACHINE OPERATOR [Primary Care Provider] -
[2017-05-29] MEDS: Cholecalciferol (D-3) 1,000 UNIT TABLET PO SCH (08:14)
[2017-05-29] MEDS: Pregabalin 75 MG CAPSULE PO SCH ×3 (08:14→19:42)
[2017-05-29] MEDS: Aspirin Enteric Coated 325 MG Tablet PO SCH ×3 (08:14→19:43)
[2017-05-29] MEDS: EPA PO SCH (08:16)
[2017-05-29] MEDS: FISH OIL PO SCH (08:16)
[2017-05-29] MEDS: DHA PO SCH (08:16)
[2017-05-29] MEDS: OMEGA PO SCH (08:16)
[2017-05-29] MEDS: Ringers Solution, Lactated 1,000 ML IVC SCH ×2 (16:24→17:31)
--- NOTE | 2017-05-29 16:44 | Event Note ---
Date of Encounter: 05/29/17 Time of Encounter: 13:00 Right tibia removal of hardware takedown of nonunion open reduction internal fixation revision 05/28/17 POD#.1 Patient seen at bedside. Pain control: adequate Participating in PT. All questions and concerns addressed. Educated on use of incentive spirometer, ambulation, and hydration. Patient educated on post-operative restrictions and care. Addressed: Will plan to have bring in CAM walker boot from home; plan to transition to this 05/30. D/C plan: [facility] Friday
--- NOTE | 2017-05-29 16:47 | Physician Discharge Referral ---
<Wendy Gray L - Last Filed: 05/29/17 16:44> [facility] Referral Info Transfer To: F Provider in Charge: Provider in Charge after Transfer: PCP Institutional Level of Care: Skilled - Diagnosis (1) S/P ORIF (open reduction internal fixation) fracture Priority: Primary Status: Acute (2) Fracture tibia/fibula Priority: Secondary Status: Chronic (3) Hypertension Priority: Secondary Status: Chronic (4) Morbid obesity Priority: Secondary Status: Chronic Expected Duration of Placement: < 30 days Prognosis: Good Aware of Diagnosis: Patient Aware of Prognosis: Patient - Transfer Medications Home Medications: Duloxetine HCl [Cymbalta] 60 mg PO DAILY 05/05/16 [History] Alendronate Sodium [Fosamax] 70 mg PO WILLS 05/06/16 [History] Levothyroxine [Synthroid] 75 mcg PO QAM 05/06/16 [History] Pregabalin [Lyrica] 75 mg PO TID 05/06/16 [History] Simvastatin [Zocor] 40 mg PO HS 05/06/16 [History] Calcitriol [Rocaltrol] 0.25 mcg PO DAILY 09/23/16 [History] Calcium Carbonate [Calcium] 600 mg PO DAILY 09/23/16 [History] [place]-3/Dha/Epa/Fish Oil [[place] 3 500 Softgel] 1 each PO DAILY 09/23/16 [History ] Aspirin Enteric Coated [Aspirin EC] 325 mg PO DAILY 21 Days #21 tablet. [Rx] OxyCODONE Immed Rel [Roxicodone 5 MG] 5 mg PO Q6HR PRN #28 tablet 05/27/17 [Rx] Cholecalciferol (Vitamin D3) [Vitamin D3] 2,000 unit PO BID 05/28/17 [History] Ferrous Sulfate [Iron] 325 mg PO DAILY 05/28/17 [History] Lisinopril/Hydrochlorothiazide [Zestoretic 10-12.5 mg Tablet] 1 tab PO DAILY [History] Omeprazole [PriLOSEC] 20 mg PO DAILY 05/28/17 [History] Allergies/Adverse Reactions: 3 Allergy/AdvReac Type Severity Reaction Status Date / Time menthol [From Ice Gel] Allergy Rash Verified 05/28/17 06:49 - Respiratory Orders None Smoking Cessation: Smoking cessation has been advised. For more information, call the [place] Tobacco Quit Line at 4-261-OGZW-NOW. - Ancillary Orders May use pressure relief devices daily prn, May go on SHIRLEY w/family/respon democrat w /meds at nurse discretion PRN - Mobility Orders Chair, Bedrest - Rehabiliation Orders Rehab Potential: Good Rehab Orders: Evaluation for Physical Therapy, Evaluation for Occupational Therapy Other: NWB to LLE x 6 weeks. In CAM walker boot x 6 weeks. - Treatments Skin tear care topically daily PRN per policy List/Other: Opsite dressing, leave intact until first post-operative visit. If dressing becomes >50% saturated, contact office, remove dressing and place appropriate dressing in its place. Do not allow for dressing to get wet. [place] in place, plan to remove at post-operative day #14-16. Total Joint Precautions x 6 weeks Apply cold therapy wrap 3-6x/day for 20 minutes at a time. Encourage ambulation throughout the day Use Incentive spirometer 10x/hour. Elevate affected extremity above heart as tolerated. - Diet Orders Regular CERTIFICATION: I certify that the transfer of the above named patient to an Extended Care Facility is necessary for the continuing treatment of the diagnosis listed. The above information is true and accurate reflection of patient's current condition. Confidential - Redisclosure prohibited without a patient's written consent. 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 For more information, call the [place] Tobacco Quit Line at 4-956-LMCU-NOW. CERTIFICATION: I certify that the transfer of the above named patient to an Extended Care Facility is necessary for the continuing treatment of the diagnosis listed. The above information is true and accurate reflection of patient's current condition. Confidential - Redisclosure prohibited without a patient's written consent. <Milagro Goldsmith - Last Filed: 05/30/17 19:22> - Diagnosis (1) Closed displaced oblique fracture of shaft of right tibia with nonunion Status: Chronic (2) Osteomalacia Status: Chronic (3) GERD (gastroesophageal reflux disease) Status: Chronic (4) Fibromyalgia Status: Chronic (5) Hypothyroidism Status: Chronic (6) Hypertension Status: Chronic (7) Morbid obesity Status: Chronic (8) Chronic pain Status: Chronic - Respiratory Orders Smoking Cessation: Smoking cessation has been advised. For more information, call the [place] Tobacco Quit Line at 9-071-QYAZ-NOW. - Treatments List/Other: No cold therapy for patient to wound area CERTIFICATION: I certify that the transfer of the above named patient to an Extended Care Facility is necessary for the continuing treatment of the diagnosis listed. The above information is true and accurate reflection of patient's current condition. Confidential - Redisclosure prohibited without a patient's written consent.
[2017-05-30] MEDS: *HR* OxyCODONE Immed Rel 5 MG TABLET PO PRN ×4 (02:48→21:02)
[2017-05-30 04:05] LABS: Calcium 8.2 mg/dL (8.6-10.8); Hematocrit 32.6 % (35.3-44.9); Hemoglobin 10.4 g/dL (11.5-15.4); Potassium 3.7 mEq/L (3.5-4.5)
[2017-05-30] MEDS: *HR* HYDROmorphone (PF) 1 MG/ML SYRINGE IVP PRN (04:06)
[2017-05-30] MEDS: DHA PO SCH (08:19)
[2017-05-30] MEDS: Cholecalciferol (D-3) 1,000 UNIT TABLET PO SCH (08:19)
[2017-05-30] MEDS: FISH OIL PO SCH (08:19)
[2017-05-30] MEDS: OMEGA PO SCH (08:19)
[2017-05-30] MEDS: Aspirin Enteric Coated 325 MG Tablet PO SCH ×2 (08:19→21:02)
[2017-05-30] MEDS: EPA PO SCH (08:19)
[2017-05-30] MEDS: Pregabalin 75 MG CAPSULE PO SCH ×3 (08:19→21:02)
[2017-05-30] MEDS: Ringers Solution, Lactated 1,000 ML IVC SCH (08:20)
[2017-05-31] MEDS: *HR* OxyCODONE Immed Rel 5 MG TABLET PO PRN ×3 (01:34→10:01)
[2017-05-31 06:48] VITALS: BP 106/70
--- NOTE | 2017-05-31 07:26 | Orthopedics Progress Note ---
Date of Encounter: 05/31/17 Time of Encounter: 07:25 - Assessment and Plan (1) Fibromyalgia Current Visit: No Status: Chronic (2) Hypothyroidism Current Visit: No Status: Chronic Qualifiers: Hypothyroidism type: unspecified Qualified Code(s): E03.9 - Hypothyroidism , unspecified (3) Hypertension Current Visit: No Status: Chronic Qualifiers: Hypertension type: unspecified Qualified Code(s): I10 - Essential (primary ) hypertension (4) Morbid obesity Current Visit: No Status: Chronic (5) Renal failure, chronic Current Visit: No Status: Inactive Qualifiers: Chronic kidney disease stage: stage 3 (moderate) Qualified Code(s): N18.3 - Chronic kidney disease, stage 3 (moderate) (6) Osteomalacia Current Visit: No Status: Chronic (7) GERD (gastroesophageal reflux disease) Current Visit: No Status: Chronic Qualifiers: Esophagitis presence: esophagitis presence not specified Qualified Code(s) : K21.9 - Gastro-esophageal reflux disease without esophagitis (8) Chronic pain Current Visit: No Status: Chronic Qualifiers: Chronic pain type: other chronic pain Qualified Code(s): G89.29 - Other chronic pain Subjective Interval history: Patient was seen this morning doing well without complaints. Afebrile vital signs stable. Operative extremity: Neurovascularly intact Splint intact and dry Assessment and plan: Discharged today Objective Vital signs: Vital Signs Temp Pulse Resp BP Pulse Ox 05/31/17 06:47 98.2 F 93 18 106/70 91 05/30/17 22:59 98.7 F 82 15 113/71 98 05/30/17 20:09 97.8 F 71 18 113/72 94 05/30/17 19:09 98.1 F 97 15 129/79 98 05/30/17 15:56 98.4 F 101 14 102/63 92 05/30/17 11:30 97.6 F 83 20 146/86 92 05/30/17 11:28 97.9 F 96 14 111/61 95 Intake and Output 05/30/17 05/30/17 05/31/17 15:59 23:59 07:59 Intake Total 720 / 720 700 / 700 Output Total 750 / 750 400 / 400 Balance -30 / -30 300 / 300 Intake: Oral 720 / 720 700 / 700 Output: Urine 750 / 750 400 / 400 Other: Meal Lunch Dinner Percent of Meal Consumed 90% 100% # Voids 1 Weight 99.337 kg 158 kg - Labs CBC & BMP: 05/30/17 03:22 05/30/17 03:22 Labs: Abnormal lab results Hgb 10.4 g/dL (11.5-15.4) L 05/30/17 03:22 Hct 32.6 % (35.3-44.9) L 05/30/17 03:22 Carbon Dioxide 30 mEq/L (19-29) H 05/30/17 03:22 BUN 21 mg/dL (7-20) H 05/30/17 03:22 Creatinine 1.16 mg/dL (0.57-1.11) H 05/30/17 03:22 Est GFR ( Amer) 58 (> 60) L 05/30/17 03:22 Est GFR (Non-Af Amer) 48 (> 60) L 05/30/17 03:22 Glucose 125 mg/dL (70-99) H 05/30/17 03:22 Calcium 8.2 mg/dL (8.6-10.8) L 05/30/17 03:22 - VTE Documentation of Mechanical Device: Venous foot pump, device Consult Discharge Plan - Plan Referrals: Trey Cunningham MD [Partnered Physician] - 06/17/17 10:00 am Belen Saravia CNP [Primary Care Provider] - 06/10/17 10:15 am
[2017-05-31] MEDS: Pregabalin 75 MG CAPSULE PO SCH (08:13)
[2017-05-31] MEDS: OMEGA PO SCH (08:14)
[2017-05-31] MEDS: FISH OIL PO SCH (08:14)
[2017-05-31] MEDS: Cholecalciferol (D-3) 1,000 UNIT TABLET PO SCH (08:14)
[2017-05-31] MEDS: EPA PO SCH (08:14)
[2017-05-31] MEDS: Aspirin Enteric Coated 325 MG Tablet PO SCH (08:14)
[2017-05-31] MEDS: DHA PO SCH (08:14)
[2017-06-01] MEDS ORDERED: NON-FORMULARY MEDICATION 1 EACH EACH (Alendronate Sodium [Fosamax] 70 MG) PO SCH (08:02)
== END 2017-05-31 11:54 | DRG 493 ==
LOC: SAMDAY 06:05 → 3NENU 11:14
PROVIDERS: ADMIT Orthopaedic Surgery; ATTEND Orthopaedic Surgery